=== PATIENT | male | born 1955 | race Caucasian/White ===

== ENCOUNTER 2023-03-14 10:53 | Emergency (ER) | payer OTHER, MEDICARE ==
[~2023-03-14] VITALS: Ht 175.3 cm; Wt 104.0 kg
[2023-03-14 11:10] VITALS: BP 139/79; PULSE 60; RESP 20; TEMP 98.7; O2SAT 98
[2023-03-14] MEDS ORDERED: IBUP-2030 MT (11:21)
[2023-03-14] MEDS ORDERED: CIPHCO RIGHT EAR (11:21)
== END 2023-03-14 13:16 | disposition home or self-care (01) ==
LOC: ER 10:53
DX: H60.91 Unspecified otitis externa, right ear (principal)
CPT/HCPCS: 99281